=== PATIENT | male | born 1955 | race Caucasian/White ===

== ENCOUNTER 2017-04-22 15:00 | Outpatient (RCR) | payer MEDICAID ==
--- NOTE | 2017-04-14 13:41 | PT/OT/ST INITIAL EVALUATION ---
Department of Health and Human Services Form Approved [facility] Financing Administration OMB No. [id number] PLAN OF CARE/ASSESSMENT FOR OUTPATIENT REHABILITATION (Complete for Initial Claims Only) 1. PATIENT'S NAME Castro Diaz 2. ACC # [id number] 3. [facility] [id number] 4. PROVIDER NO. [id number] 5. TYPE: PT 6. PRIOR HOSPITALIZATION None 7. PRIMARY DX Status post right total knee arthroplasty. 8. SECONDARY DX Limited range of motion, strength and stability. 9. ONSET DATE 04/05/2017 10. REFERRAL DATE 04/04/2017 11. SOC. DATE 04/12/2017 12. TIME OF EVAL 11:[address] Jona Deluca 13. CHARGES/UNITS Evaluation, Therex and vaso 14. G CODES NA 15. PRIOR LEVEL OF FUNCTION; PERTINENT HISTORY (Prior therapy results, reason for referral.) S: Reason for referral: The patient was referred to physical therapy status post right total knee arthroplasty. The patient reports that he had [id number] at right knee for some time. Primary complaint: He notes that since surgery he has had quite a bit of swelling at the knee. He reports that he is walking better today. His current pain rating is 3 to 4/10. He does have issues with hearing and vision, however, he is a poor historian and his past medical history is limited. Pain level: Current pain rating is 3 to 4/10. Past medical history: The patient does report having hernia surgery in the past. No other significant past medical history is reported. Current medications: Includes Aleve as needed. Patient's Goal: The patient's goal for therapy is to be able to move around again without limping. 16. INITIAL ASSESSMENT/SAFETY PRECAUTIONS/MEDICAL COMPLICATIONS (Level of function at start of care. Be specific, use objective measures, list problems.) O: APPEARANCE, OBSERVATION AND GAIT: The patient is a tall, slender 61-year-old male. He ambulates into physical therapy with slow step-2 gait pattern. No assistive device. Appearance of right knee does demonstrate a large amount of swelling at his anterior knee and bruising at the anterior medial aspect of the knee. Minimal pitting edema into his right lower flowers. Dressing was intact. Minimal drainage noted at the dressing. RANGE OF MOTION/FLEXIBILITY: Right knee -8 degrees from terminal knee extension to 92 degrees flexion. Left knee 0 degrees to 140 degrees. STRENGTH: Right hip strength was 3/5 manual muscle test. The patient was able to perform straight leg raise independently mildly lacking terminal knee extension. Left hip and knee strength were 5/5 manual muscle test. Increased crepitus known with resistance at the left knee. The patient's right quad contraction was fair. TODAY'S TREATMENT: Treatment included initial evaluation followed by instruction of home exercise program. The Patient was also instructed on gait training with single-point cane to improve stability and safety. The treatment was ended with vasopneumatic cold compression. 17. INITIAL POC: (Specify procedures, modalities, short and [facility] goals) A: The patient is status post right total knee arthroplasty. PROGNOSIS: The patient is a good candidate for physical therapy to regain range of motion, flexibility, stabilization and strength. SHORT TERM GOALS: 1. The patient to be compliant with home exercise program in 1 week. 2. The patient to attain full terminal knee extension at right knee in 3 weeks. 3. The patient to attain 120 degrees flexion at right knee in 4 weeks. 4. The patient to ambulate without assistive device with normal gait pattern with good stability and control in 6 weeks. 5. The patient to be able to ascend and descend stairs alternating steps with good stability and control. 6. The patient to report that he is able to perform daily activities with a pain rating of 0 to 1/10 in 6 weeks. P: The patient will be seen 2 times a week over the next 6 weeks. Plan on progressing the patient with range of motion, flexibility, stability and strength. Modalities and manual therapy will be used as necessary to decrease pain and inflammation. We will continue to educate the patient on overall diagnosis and outcomes. 18. FREQUENCY 2 times per week 19. DURATION 6 weeks 20. FUNCTIONAL LEVEL (End of claim period) 21. PHYSICIAN SIGNATURE ? ON FILE OR ENTER HERE: 22. DATE: I certify the need for these services furnished under this plan of care and if for partial hospitalization. 23. CERTIFICATION FROM THROUGH FORM [id number]
[~2017-04-22 15:00] MED LIST: ASPI-860 PO; ATOR80TA PO; GLUC1500 PO; HYDR-707 PO; OMG1KC PO; VITA80006 PO
== END 2017-04-25 10:16 | disposition home or self-care (01) ==
LOC: PT 15:00
PROVIDERS: ATTEND Orthopaedic Surgery
DX: Z96.651 Presence of right artificial knee joint (principal); M25.661 Stiffness of right knee, not elsewhere classified
CPT/HCPCS: 97016; 97110; 97161; G8978; G8979